=== PATIENT | female | born 1965 | race Caucasian/White ===

== ENCOUNTER 2022-05-24 08:14 | Outpatient (CLI) | payer BC | END 2022-05-24 08:15 | disposition home or self-care (01) | LOC: CSHWCC 08:14 | PROVIDERS: ATTEND Family Medicine | DX: E11.622 Type 2 diabetes mellitus with other skin ulcer (principal); E11.621 Type 2 diabetes mellitus with foot ulcer; L97.812 Non-pressure chronic ulcer of other part of right lower leg with fat layer exposed; L97.412 Non-pressure chronic ulcer of right heel and midfoot with fat layer exposed; R60.0 Localized edema | CPT/HCPCS: 99205; G0463 ==

== ENCOUNTER 2022-05-31 10:43 | Outpatient (CLI) | payer BC | END 2022-05-31 10:44 | disposition home or self-care (01) | LOC: CSHWCC 10:43 | PROVIDERS: ATTEND Nurse Practitioner Family | DX: E11.622 Type 2 diabetes mellitus with other skin ulcer (principal); E11.621 Type 2 diabetes mellitus with foot ulcer; L97.812 Non-pressure chronic ulcer of other part of right lower leg with fat layer exposed; L97.412 Non-pressure chronic ulcer of right heel and midfoot with fat layer exposed; R60.0 Localized edema | CPT/HCPCS: 99213; G0463 ==

== ENCOUNTER 2022-06-07 09:54 | Outpatient (CLI) | payer BC | END 2022-06-07 09:55 | disposition home or self-care (01) | LOC: CSHWCC 09:54 | PROVIDERS: ATTEND Nurse Practitioner Family | DX: R60.0 Localized edema (principal) | CPT/HCPCS: 99213; G0463 ==

== ENCOUNTER 2022-06-28 09:45 | Outpatient (CLI) | payer BC | END 2022-06-28 09:46 | disposition home or self-care (01) | LOC: CSHWCC 09:45 | PROVIDERS: ATTEND Nurse Practitioner Family | DX: R60.0 Localized edema (principal) | CPT/HCPCS: 99213; G0463 ==

== ENCOUNTER 2022-07-18 08:08 | Outpatient (CLI) | payer BC | END 2022-07-18 08:09 | disposition home or self-care (01) | LOC: CSHWCC 08:08 | PROVIDERS: ATTEND Nurse Practitioner Family | DX: R60.0 Localized edema (principal) ==